=== PATIENT | female | born 1955 | race Caucasian/White ===

== ENCOUNTER 2022-06-18 15:19 | Emergency (ER) | payer MEDICARE ==
[~2022-06-18] VITALS: Ht 162.6 cm; Wt 61.0 kg
[2022-06-18] VITALS (8 sets, daily range): BP systolic 143–171; BP diastolic 62–94
[~2022-06-18 15:19] MED LIST: FLEXERIL OR; NAPROSYN500 MG OR; ULTRAM50 MG OR
[2022-06-18] MEDS ORDERED: PROZAC20 MG PO (15:30)
[2022-06-18] MEDS ORDERED: PRAVASTATIN20 MG PO (15:31)
[2022-06-18 17:04] LABS: URINE BILIRUBIN - DIPSTICK NEGATIVE (NEGATIVE); URINE BLOOD DIPSTICK SMALL (NEGATIVE); URINE COLOR YELLOW; URINE GLUCOSE - DIPSTICK NEGATIVE (NEGATIVE); URINE KETONE NEGATIVE (NEGATIVE); URINE LEUK ESTERASE MODERATE (NEGATIVE); URINE NITRITE - DIPSTICK POSITIVE (Negative); URINE PROTEIN - DIPSTICK 100 mg/dL (NEG-TRACE)
[2022-06-18 17:09] LABS: URINE BACTERIA MODERATE hpf; URINE SQUAMOUS EPITHELIAL CELL FEW EPI/hpf (0-FEW)
[2022-06-18] MEDS ORDERED: KEFLEX500 MG PO (17:47)
== END 2022-06-18 18:12 | disposition home or self-care (01) ==
LOC: ED 15:19
PROVIDERS: Nurse Practitioner
DX: N39.0 Urinary tract infection, site not specified (principal); B96.20 Unspecified Escherichia coli [E. coli] as the cause of diseases classified elsewhere; Z20.822 Contact with and (suspected) exposure to COVID-19